=== PATIENT | male | born 1975 | race Caucasian/White ===

== ENCOUNTER 2017-06-25 18:34 | Emergency (ER) | payer OTHER ==
[~2017-06-25] VITALS: Ht 175.3 cm; Wt 86.0 kg
[~2017-06-25 18:34] MED LIST: CIPRO500 MG OR; LORTAB 5 OR; NORCO1 TA1 PO
[2017-06-25 19:37] LABS: HEMATOCRIT 47.8 % (39.0-50.0); HEMOGLOBIN 16.7 g/dl (14.0-18.0); IMMATURE GRANULOCYTES 0.7 % (0.0-1.0); MEAN CORPUSCULAR HGB 32.3 pG CALC (26.0-32.0); MEAN CORPUSCULAR HGB CONC 34.9 g/L CALC (32.0-36.0); NEUT# 5.15 thou/uL (1.82-7.42); RED BLOOD COUNT 5.17 mill/uL (4.70-6.10); RED CELL DISTRI WIDTH 12.6 % (11.5-15.5)
[2017-06-25 19:47] LABS: MEAN CELL VOLUME 92.5 fL CALC (80.0-100.0)
[2017-06-25 19:49] LABS: ANION GAP 21 (6-22 (CALC)); BUN 18 mg/dL (9-20); BUN/CREATININE RATIO 16 (12-20 (CALC)); CARBON DIOXIDE 25 mmol/l (22-30); CHLORIDE 101 mmol/l (95-108); CREATININE 1.1 mg/dL (0.7-1.3); GFR > 60 ML/MIN (>=60 (CALC)); GFR FOR AFR.AMER. > 60 ML/MIN (>=60 (CALC)); POTASSIUM 4.6 mmol/l (3.5-5.1); SODIUM 142 mmol/l (137-146)
[2017-06-25 20:48] VITALS: BP 133/91
== END 2017-06-25 20:48 | disposition home or self-care (01) | DRG 149 ==
LOC: ED 18:34
PROVIDERS: Family Medicine
DX: R42 Dizziness and giddiness (principal); R55 Syncope and collapse; R07.9 Chest pain, unspecified; F17.210 Nicotine dependence, cigarettes, uncomplicated; I10 Essential (primary) hypertension

== ENCOUNTER 2018-07-12 06:23 | Emergency (ER) | payer SELFPAY ==
[~2018-07-12] VITALS: Ht 175.3 cm; Wt 89.0 kg
[2018-07-12 07:05] LABS: HEMATOCRIT 46.6 % (39.0-50.0); IMMATURE GRANULOCYTES 0.3 % (0.0-5.0); MEAN CELL VOLUME 90.3 fL CALC (80.0-100.0); MEAN CORPUSCULAR HGB CONC 34.3 g/L CALC (32.0-36.0); NEUT# 5.9 thou/uL (1.82-7.42); RED BLOOD COUNT 5.16 mill/uL (4.70-6.10); RED CELL DISTRI WIDTH 12.6 % (11.5-15.5)
[2018-07-12 07:22] LABS: ALBUMIN 4.5 g/dL (3.2-5.0); ALKALINE PHOSPHATASE 109 u/l (38-126); ANION GAP 13 (6-22 (CALC)); BUN 27 mg/dL (9-20); BUN/CREATININE RATIO 26 (12-20 (CALC)); CARBON DIOXIDE 22 mmol/l (22-30); CHLORIDE 109 mmol/l (95-108); CREATININE 1.1 mg/dL (0.7-1.3); GFR > 60 ML/MIN (>=60 (CALC)); GFR FOR AFR.AMER. > 60 ML/MIN (>=60 (CALC)); POTASSIUM 4.2 mmol/l (3.5-5.1); SGOT/AST 23 u/l (17-59); SODIUM 140 mmol/l (137-146); TOTAL PROTEIN 6.9 g/dL (6.3-8.2)
[2018-07-12 07:29] LABS: BILIRUBIN, TOTAL 1.1 mg/dL (0.0-1.4)
[2018-07-12] MEDS ORDERED: LISINOPRIL20 MG PO (07:32)
[2018-07-12] MEDS ORDERED: AMOXICILLIN500 MG PO (07:32)
[2018-07-12] MEDS ORDERED: TORADOL PO (07:32)
[2018-07-12 07:41] VITALS: BP 160/103
== END 2018-07-12 07:47 | disposition home or self-care (01) | DRG 159 ==
LOC: ED 06:23
PROVIDERS: Emergency Medicine
DX: K04.7 Periapical abscess without sinus (principal); S02.5XXA Fracture of tooth (traumatic), initial encounter for closed fracture; I10 Essential (primary) hypertension; F17.200 Nicotine dependence, unspecified, uncomplicated; R51 Headache

== ENCOUNTER 2019-01-23 12:45 | Emergency (ER) | payer SELFPAY ==
[~2019-01-23] VITALS: Ht 175.3 cm; Wt 88.6 kg
[~2019-01-23 12:45] MED LIST changes: +AMOXICILLIN500 MG PO; +LISINOPRIL20 MG PO; +TORADOL PO
[2019-01-23 12:59] VITALS: BP 156/114
== END 2019-01-23 14:50 | disposition left against medical advice (07) | DRG 951 ==
LOC: ED 12:45 → LWOBS 14:49 → ED 14:49 → LWOBS 14:50
DX: Z91.19 Patient's noncompliance with other medical treatment and regimen (principal)